=== PATIENT | male | born 1975 | race Caucasian/White ===

== ENCOUNTER 2017-01-12 15:07 | Emergency (ER) | payer OTHER ==
[2017-01-12] MEDS ORDERED: MORPHINE SULFATE 10 MG/ML IV ONE (15:47)
[2017-01-12] MEDS ORDERED: BENADRYL 50 MG/ML IV ONE (15:47)
[2017-01-12] MEDS ORDERED: BENADRYL 50 MG/ML ONE (16:00)
[2017-01-12] MEDS ORDERED: Sodium Chloride 0.9% 1000 ML 1,000 ML ONE (16:00)
[2017-01-12] MEDS ORDERED: Sodium Chloride 0.9% 1000 ML 1,000 ML IV SCH (16:00)
[2017-01-12] MEDS ORDERED: MORPHINE SULFATE 10 MG/ML ONE (16:00)
--- NOTE | 2017-01-12 16:06 | ERPHSYRPT ---
- History of Present Illness Time Seen by Provider: 01/12/17 15:42 Source: patient, family () Patient Subjective Stated Complaint: pt states this morning he woke up with right hip and back pain. states he is recieving physical therapy for back currently. pt denies any injury. Triage Nursing Assessment: pt pink, warm, dry. pt ambulated into Er on own. no deformity noted. no swelling noted. denies any difficulty urinating. Physician History: CC: back pain Hx: 41 y/o patient of Dr Cuenca and Dr Abraham. He has chronic back pain and is in PT preparing for surgery. This AM he awoke with severe spasm pain in the low back and hips. Different than prior. Feels like back is out. No fever, chills, urinary problems. No N/T/W. Pain is severe. He has DM and is on insulin. Nonsmoker. Off work from mine. Severity of Pain-Max: severe Severity of Pain-Current: severe Allergies/Adverse Reactions: Sulfa (Sulfonamide Antibiotics) Allergy (Verified 01/12/17 15:21) Swelling of Eyelids Home Medications: Dapagliflozin Propanediol [Farxiga] 10 mg PO DAILY 05/07/14 [History] Insulin Aspart [NovoLOG Insulin] 15 unit SQ TID PRN PRN 05/07/14 [History] Insulin Glargine [Lantus Insulin] 30 unit SQ BID 05/07/14 [History] Metformin HCl 1000 mg [Glucophage 1000 MG] 1,000 mg PO BID 05/07/14 [History] Hx Tetanus, Diphtheria Vaccination/Date Given: Yes (up to date) Hx Influenza Vaccination/Date Given: No Hx Pneumococcal Vaccination/Date Given: No Immunizations Up to Date: Yes - Review of Systems Constitutional: No Fever, No Chills Cardiac: No Chest Pain Abdominal/Gastrointestinal: No Abdominal Pain Genitourinary Symptoms: No Dysuria, No Incontinence, No Flank Pain, No Testicle Pain Musculoskeletal: Back Pain Skin: No Rash Neurological: No Focal Weakness, No Headache, No Parasthesia All Other Systems: Reviewed and Negative - Past Medical History Pertinent Past Medical History: Yes Neurological History: No Pertinent History ENT History: No Pertinent History Cardiac History: High Cholesterol, Hypertension Respiratory History: No Pertinent History Endocrine Medical History: Diabetes Type II GI Medical History: No Pertinent History History: No Pertinent History Male Reproductive Disorders: No Pertinent History Other Medical History: chronic pain - Past Surgical History Past Surgical History: Yes Cardiac: Cardiac Catheterization Gastrointestinal: Hernia Repair Other Surgical History: back surgery - Social History Smoking Status: Former smoker Exposure to second hand smoke: No Drug Use: none Patient Lives Alone: No - Nursing Vital Signs Nursing Vital Signs: Initial Vital Signs Temperature 97.8 F 01/12/17 15:10 Pulse Rate 70 01/12/17 15:10 Respiratory Rate 18 01/12/17 15:10 Blood Pressure 157/94 01/12/17 15:10 O2 Sat by Pulse Oximetry 97 01/12/17 15:10 - Physical Exam General Appearance: alert Eye Exam: PERRL/EOMI Ears, Nose, Throat Exam: normal ENT inspection, moist mucous membranes Neck Exam: normal inspection, non-tender, supple Respiratory Exam: normal breath sounds, lungs clear Cardiovascular Exam: regular rate/rhythm Gastrointestinal Exam: soft, No tenderness, No distention Male Genetalia Exam: normal genitalia, No priapism Back Exam: normal inspection, other (tender with deformity noted right SI area, no rash or redness), No vertebral tenderness Extremity Exam: normal inspection, limited range of motion (due to pain) Neurologic Exam: alert, oriented x 3, cooperative, sensation nml, No motor deficits Skin Exam: warm, dry, No rash SpO2 Interpretation: normal SpO2: 97 Oxygen Delivery: Room Air - Course Nursing assessment & vital signs reviewed: Yes Ordered Tests: Active Orders 24 hr Category Date Time Status IV Insertion STAT Care 01/12/17 15:47 Active LUMBAR LIMITED (2 OR 3 VIEWS) Stat Exams 01/12/17 15:48 Completed PELVIS (1 OR 2 VIEWS) Stat Exams 01/12/17 15:49 Completed SACROLILIAC JOINTS (MIN 3 VIEW Stat Exams 01/12/17 15:48 Completed Medication Summary Generic Name Dose Route Start Last Admin Trade Name Freq PRN Reason Stop Dose Admin Sodium Chloride 1,000 mls @ 100 mls/hr 01/12/17 16:00 01/12/17 16:01 Sodium Chloride 0.9% 1000 Ml IV 02/11/17 15:59 100 mls/hr .Q10H VALARIE Administration Discontinued Medications Generic Name Dose Route Start Last Admin Trade Name Freq PRN Reason Stop Dose Admin Diphenhydramine HCl 40 mg 01/12/17 15:47 01/12/17 16:02 Benadryl 50 Mg/Ml IV 01/12/17 15:48 40 mg STAT ONE Administration Diphenhydramine HCl Confirm 01/12/17 16:00 Benadryl 50 Mg/Ml Administered 01/12/17 16:01 Dose 50 mg .ROUTE .STK-MED ONE Morphine Sulfate 8 mg 01/12/17 15:47 01/12/17 16:05 Morphine Sulfate 10 Mg/Ml IV 01/12/17 15:48 8 mg STAT ONE Administration Morphine Sulfate Confirm 01/12/17 16:00 Morphine Sulfate 10 Mg/Ml Administered 01/12/17 16:01 Dose 10 mg .ROUTE .STK-MED ONE - Progress Progress Note: 01/12/17 16:42 Degenerative changes on xrays. Accu check 109. He was given benadryl and morphine. He has PT scheduled. Rx norflex and motrin. Instr given. He ambulated to and urinated. Counseled pt/family regarding: diagnosis, need for follow-up, rad results - Departure Time of Disposition: 16:43 Departure Disposition: Home Clinical Impression: Acute exacerbation of chronic low back pain Condition: Stable Critical Care Time: No Referrals: IVAN CUENCA [Primary Care Provider] - TEODORO ABRAHAM [ACTIVE STAFF] - Instructions: Low Back Pain Additional Instructions: Rx motrin=ibuprofen. Rx norflex. Warm compresses, physical therapy. No driving tonite or while taking norflex. Prescriptions: Ibuprofen 600 mg PO Q6H PRN PRN #24 tablet PRN Reason: Pain Orphenadrine Citrate 100 mg [Norflex 100 MG Tablet] 1 tab PO BID #10 tab
--- NOTE | 2017-01-12 16:34 | XRAY ---
Indication: Chronic low back pain. No known injury. Comparison: None 3 views of the sacroiliac joints demonstrate lower lumbar degenerative changes reported separately. No other bony, articular, or soft tissue abnormalities.
--- NOTE | 2017-01-12 16:34 | XRAY ---
Indication: Chronic low back pain. No known injury. Comparison: None AP pelvis demonstrate minimal right hip degenerative changes as evidenced by joint space narrowing and superior acetabular spurring. Lower lumbar degenerative changes reported separately. No other bony, articular, or soft tissue abnormalities.
--- NOTE | 2017-01-12 16:36 | XRAY ---
Indication: Chronic low back pain. No known injury. Comparison: None 3 views of the lumbar spine demonstrates 5 lumbar vertebral segments with hypoplastic T12 ribs. Minimal double curvature scoliosis. Moderate/advanced multilevel degenerative disc disease greatest at the L1-L2 and L4-S1 levels as evidenced by disc space loss, endplate sclerosis/spurring, and vacuum disc phenomena. Also bilateral L5-S1 degenerative facet arthropathy. Small superior L3 Schmorl node. No other bony, articular, or soft tissue abnormalities. Impression: Nonacute lumbar spine with chronic features.
[2017-01-12] MEDS ORDERED: MORPHINE SULFATE 4 MG INJ IV ONE (16:42)
[2017-01-12] MEDS ORDERED: MORPHINE SULFATE 4 MG INJ ONE (16:50)
[2017-01-12 17:00] VITALS: O2SAT 98
[2017-01-12 17:17] VITALS: BP 141/93; PULSE 70
== END 2017-01-12 17:18 | disposition home or self-care (01) ==
LOC: ED 15:07
DX: M54.5 Low back pain (principal)
CPT/HCPCS: 36000; 72100; 72170; 72202; 96360; 96361; 96374; 96375; 96376; 99284; J1200; J2270

== ENCOUNTER 2018-01-03 11:21 | Emergency (ER) | payer OTHER ==
[2018-01-03] MEDS ORDERED: TORAdol 30 mg Injection IM ONE (11:58)
[2018-01-03] MEDS ORDERED: TORAdol 30 mg Injection ONE (12:03)
--- NOTE | 2018-01-03 12:03 | ERPHSYRPT ---
- History of Present Illness Time Seen by Provider: 01/03/18 11:59 Source: patient Exam Limitations: no limitations Patient Subjective Stated Complaint: Patient states right hip pain with no known injury. Patient states he has an appointment with Dr. Cárdenas on 01/04/18, but the pain is unbearable. Triage Nursing Assessment: Pain in right groin area that radiates to right gonzalez. Patient has + pedal pulse to right foot. Obvious distress noted. Physician History: mild to mod ache pain in the right hip for one day after lifting and bending, o/ w no injury, ambulatory, no hematuria, hx chronic back pain, dm Allergies/Adverse Reactions: Sulfa (Sulfonamide Antibiotics) Allergy (Verified 01/03/18 11:48) Swelling of Eyelids Home Medications: Metformin HCl 1000 mg [Glucophage 1000 MG] 1,000 mg PO BID 05/07/14 [History] Empagliflozin [Jardiance] 25 mg PO DAILY 01/03/18 [History] Insulin Glargine,Hum.rec.anlog [Basaglar Kwikpen U-100] 50 units SQ HS 01/03/18 [History] Insulin Glulisine [Apidra Solostar] 100 unit SQ DAILY 01/03/18 [History] Pravastatin Sodium [Pravachol] 20 mg PO HS 01/03/18 [History] Hx Tetanus, Diphtheria Vaccination/Date Given: Yes Hx Influenza Vaccination/Date Given: No Hx Pneumococcal Vaccination/Date Given: No - Review of Systems Constitutional: No Fever Respiratory: No Dyspnea Cardiac: No Chest Pain Abdominal/Gastrointestinal: No Abdominal Pain, No Vomiting Genitourinary Symptoms: No Hematuria Musculoskeletal: No Back Pain Skin: No Symptoms Neurological: No Dizziness - Past Medical History Pertinent Past Medical History: Yes Neurological History: No Pertinent History ENT History: No Pertinent History Cardiac History: High Cholesterol, Hypertension Respiratory History: No Pertinent History Endocrine Medical History: Diabetes Type II GI Medical History: No Pertinent History History: No Pertinent History Male Reproductive Disorders: No Pertinent History Other Medical History: chronic pain - Past Surgical History Past Surgical History: Yes Cardiac: Cardiac Catheterization Gastrointestinal: Hernia Repair Other Surgical History: back surgery - Social History Smoking Status: Former smoker Exposure to second hand smoke: No Drug Use: marijuana Patient Lives Alone: No - Nursing Vital Signs Nursing Vital Signs: Initial Vital Signs Temperature 98.7 F 07/09/18 11:26 Pulse Rate 75 01/03/18 11:26 Respiratory Rate 18 01/03/18 11:26 Blood Pressure 144/88 01/03/18 11:26 Pain Scale Pain Intensity 4 - Physical Exam General Appearance: no apparent distress Neck Exam: normal inspection Respiratory Exam: No respiratory distress Gastrointestinal Exam: No tenderness, No distention Extremity Exam: normal range of motion, pelvis stable, other (no hernia, no heat over the right hip, no erythema, +tender right hip), No contusions Neurologic Exam: alert, oriented x 3, cooperative, normal mood/affect Skin Exam: normal color, warm, dry Oxygen Delivery: Room Air - Course Nursing assessment & vital signs reviewed: Yes - Radiology Exams Hip X-ray Interpretation: Discussed w/ radiologist, No Fracture Ordered Tests: Active Orders 24 hr Category Date Time Status HIP UNI (2V) INCL PEL IF DONE Stat Exams 01/03/18 12:23 Completed CBC W DIFF Stat Lab 01/03/18 12:10 Completed CMP Stat Lab 01/03/18 12:10 Completed UA Stat Lab 01/03/18 12:10 Completed Medication Summary Discontinued Medications Generic Name Dose Route Start Last Admin Trade Name Floridalma PRN Reason Stop Dose Admin Hydrocodone Bitart/Acetaminophen 1 tab 01/03/18 12:43 01/03/18 12:50 [place] 5/325 Mg PO 01/03/18 12:44 1 tab STAT ONE Administration Hydrocodone Bitart/Acetaminophen Confirm 01/03/18 12:49 [place] 5/325 Mg Administered 01/03/18 12:50 Dose 1 tab .ROUTE .STK-MED ONE Ketorolac Tromethamine 60 mg 01/03/18 11:58 01/03/18 12:06 Toradol 30 Mg Injection IM 01/03/18 11:59 60 mg STAT ONE Administration Ketorolac Tromethamine Confirm 01/03/18 12:03 Toradol 30 Mg Injection Administered 01/03/18 12:04 Dose 60 mg .ROUTE .STK-MED ONE Lab/Rad Data: Laboratory Result Diagrams 01/03/18 12:10 01/03/18 12:10 Laboratory Results 01/03/18 01/03/18 01/03/18 Range/Units 12:10 12:10 12:10 WBC 9.6 (4.0-10.5) K/mm3 RBC 4.86 (4.1-5.6) M/mm3 Hgb 15.2 (12.5-18.0) gm/dl Hct 44.7 (42-50) % MCV 92.0 (78-100) fl MCH 31.3 (26-32) pg MCHC 34.0 (32-36) g/dl RDW 13.9 (11.5-14.0) % Plt Count 274 (150-450) K/mm3 MPV 10.0 H (6-9.5) fl Gran % 64.0 (36.0-66.0) % Eos # (Auto) 0.37 (0-0.5) Absolute Lymphs (auto) 2.20 (1.0-4.6) Absolute Monos (auto) 0.84 (0.0-1.3) Lymphocytes % 22.9 L (24.0-44.0) % Monocytes % 8.8 (0.0-12.0) % Eosinophils % 3.9 (0.00-5.0) % Basophils % 0.4 (0.0-0.4) % Absolute Granulocytes 6.14 (1.4-6.9) Basophils # 0.04 (0-0.4) Sodium 138 (137-145) mmol/L Potassium 4.1 (3.5-5.1) mmol/L Chloride 104 (98-107) mmol/L Carbon Dioxide 23 (22-30) mmol/L Anion Gap 14.5 (5-15) MEQ/L BUN 18 (9-20) mg/dL Creatinine 0.91 (0.66-1.25) mg/dL Estimated GFR > 60.0 ML/MIN Glucose 210 H (74-106) mg/dL Calcium 9.1 (8.4-10.2) mg/dL Total Bilirubin 0.30 (0.2-1.3) mg/dL AST 18 (17-59) U/L ALT 17 (0-50) U/L Alkaline Phosphatase 124 (38-126) U/L Serum Total Protein 7.2 (6.3-8.2) g/dL Albumin 4.4 (3.5-5.0) g/dL Ur Collection Type VOID Urine Color YELLOW (YELLOW) Urine Appearance CLEAR (CLEAR) Urine pH 5.0 (5-6) Ur Specific [place] 1.010 (1.005-1.025) Urine Protein NEGATIVE (Negative) Urine Ketones NEGATIVE (NEGATIVE) Urine Blood NEGATIVE (0-5) Jung/ul Urine Nitrite NEGATIVE (NEGATIVE) Urine Bilirubin NEGATIVE (NEGATIVE) Urine Urobilinogen NORMAL (0-1) mg/dL Ur Leukocyte Esterase NEGATIVE (NEGATIVE) Urine Glucose 1000 (NEGATIVE) mg/dL Specimen Received 01/03/18 1150 - Progress Progress: improved Progress Note: 01/03/18 13:30 norco warnings given, motrin, ice, see your doctor, return if worse Counseled pt/family regarding: lab results, diagnosis, need for follow-up, rad results - Departure Time of Disposition: 13:31 Departure Disposition: Home Clinical Impression: Arthritis Condition: Stable Critical Care Time: No Referrals: IVAN CUENCA [Primary Care Provider] - Instructions: Contusion (DC) Prescriptions: Hydrocodone Bit/Acetaminophen [[place] 5-325 Tablet] 1 each PO Q4-6HPRN PRN 2 Days #6 tablet MDD 4 PRN Reason: Moderate Pain
[2018-01-03 12:16] VITALS: O2SAT 98
[2018-01-03 12:19] LABS: BASOPHIL % 0.4 % (0.0-0.4); Basophil (Absolute #) 0.04 (0-0.4); Eosinophil % 3.9 % (0.00-5.0); Eosinophil (Absolute #) 0.37 (0-0.5); Granulocyte Absolute (ANC) 6.14 (1.4-6.9); Hematocrit 44.7 % (42-50); Hemoglobin 15.2 gm/dl (12.5-18.0); Lymphocytes % 22.9 % (24.0-44.0); Mean Corpuscular Hemoglobin 31.3 pg (26-32); Monocyte (Absolute #) 0.84 (0.0-1.3); Monocytes % 8.8 % (0.0-12.0); Platelet Count 274 K/mm3 (150-450); Red Blood Count 4.86 M/mm3 (4.1-5.6); Red Cell Distribution Width 13.9 % (11.5-14.0); White Blood Count 9.6 K/mm3 (4.0-10.5)
[2018-01-03 12:30] LABS: Appearance CLEAR (CLEAR); Bilirubin NEGATIVE (NEGATIVE); Blood NEGATIVE Ery/ul (0-5); Glucose 1000 mg/dL (NEGATIVE); Ketones NEGATIVE (NEGATIVE); Leukocyte Esterase NEGATIVE (NEGATIVE); Nitrite NEGATIVE (NEGATIVE); Protein,Urine Dip NEGATIVE (Negative); Urobilinogen NORMAL mg/dL (0-1)
[2018-01-03] MEDS ORDERED: NORCO 5/325 MG PO ONE (12:43)
[2018-01-03] MEDS ORDERED: NORCO 5/325 MG ONE (12:49)
--- NOTE | 2018-01-03 12:51 | XRAY ---
Exam: Right hip films including AP film of the pelvis from 01/03/2018. Comparison: AP film of the pelvis from 01/12/2017. Indication: Right hip pain. Findings: AP and frog-leg lateral views of the right hip and an AP film of the pelvis were obtained. I again note mild to moderate asymmetric narrowing of the right hip joint space with some mild spurring of the superior lateral edge of the right acetabulum. The contour of the right femoral head appears unremarkable. Findings appear similar to 01/12/2017. The left hip joint space and sacroiliac joints appear unremarkable. No fracture or dislocation is seen. There appears to be advanced degenerative disc disease at L4-L5 and L5-S1 with prominent lateral osteophytes. This also is unchanged. Impression: 1. No acute fracture, dislocation, or bone destruction is seen within the pelvis or right hip. 2. Findings consistent with mild to moderate osteoarthritis of the right hip. This appears similar to 01/12/2017. 3. Advanced degenerative disc disease is again seen at L4-L5 and L5-S1.
[2018-01-03 12:52] LABS: ALBUMIN 4.4 g/dL (3.5-5.0); ALKALINE PHOSPHATASE 124 U/L (38-126); ANION GAP 14.5 MEQ/L (5-15); BLOOD UREA NITROGEN 18 mg/dL (9-20); CHLORIDE 104 mmol/L (98-107); Calcium 9.1 mg/dL (8.4-10.2); Carbon Dioxide 23 mmol/L (22-30); Creatinine 1 0.91 mg/dL (0.66-1.25); Glucose 210 mg/dL (74-106); Potassium 4.1 mmol/L (3.5-5.1); SGOT/AST 18 U/L (17-59); SGPT/ALT 17 U/L (0-50); SODIUM 138 mmol/L (137-145); Total Protein 7.2 g/dL (6.3-8.2)
[2018-01-03] MEDS ORDERED: solu-MEDROL 125 MG IM ONE (13:29)
[2018-01-03] MEDS ORDERED: solu-MEDROL 125 MG ONE (13:35)
[2018-01-03 14:11] VITALS: BP 148/88; PULSE 53
== END 2018-01-03 14:13 | disposition home or self-care (01) ==
LOC: ED 11:21
DX: M19.90 Unspecified osteoarthritis, unspecified site (principal); E78.00 Pure hypercholesterolemia, unspecified; I10 Essential (primary) hypertension; E11.9 Type 2 diabetes mellitus without complications; Z79.4 Long term (current) use of insulin; Z87.891 Personal history of nicotine dependence; M25.551 Pain in right hip
CPT/HCPCS: 36415; 73502; 80053; 81002; 85025; 96372; 99284; J1885; J2930; A9270-GY